=== PATIENT | male | born 1975 | race African-American/Black ===

== ENCOUNTER 2019-11-14 09:20 | Emergency (ER) | payer OTHER, SELFPAY ==
--- NOTE | ~2019-11-14 | US_ITS ---
EXAMINATION: US scrotum doppler DATE: 11/14/2019 10:41 INDICATION: Right testicular pain TECHNIQUE: Testicular sonogram utilizing grayscale and Doppler COMPARISON: None. FINDINGS: The right testis measures 3.1 x 1.9 x 3.0 cm. The left testis measures 2.8 x 1.7 x 4.1 cm. There is normal vascular flow to both testes. The right epididymis is normal with normal vascular malcolm w. The left epididymis is normal with normal vascular flow. There is no varicocele or hydrocele. IMPRESSION: 1. No sonographic correlate for the patient's symptoms. Reviewed, dictated and finalized at location A.
[2019-11-14 09:18] VITALS: BP 110/60; PULSE 99; RESP 18; TEMP 37.9; O2SAT 100
--- NOTE | 2019-11-14 09:26 | ED.MALEGU ---
HPI - Male Genitourinary General Chief complaint: Urogenital-Male Stated complaint: Groin Pain Time Seen by Provider: 11/14/19 09:23 Source: patient and EMS Mode of arrival: EMS Limitations: no limitations History of Present Illness HPI Narrative: Patient presents via EMS for right testicular pain. 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 He has never had this before. He gauges the pain at 13 out of 10. Says his right testicle swollen. He says he has no risk of sexually transmitted disease. He denies penile discharge, or dysuria. He has a surgical history of circumcision and hip surgery. He has medical history of sickle cell disease. He does not recognize the medications hydroxyurea or folic acid. He does not smoke cigarettes, drink alcohol, or do marijuana. Complaint: testicle pain and testicle swelling Onset (ago): day(s) Duration: constant Location: right testicle Radiation: right inguinal region Severity: severe Severity scale (1-10): >10 Relieving factors: none Exacerbating factors: palpation Associated symptoms: Reports swelling Related Data Allergies Allergy/AdvReac Type Severity Reaction Status Date / Time No Known Allergies Allergy Verified 11/14/19 09:25 Review of Systems Review of Systems: Narrative: CONSTITUTIONAL: Denies fever, chills, or sweats. ENT: Denies rhinorrhea, congestion, sore throat, or otalgia. CARDIOVASCULAR: Denies chest pain, palpitations, or edema. RESPIRATORY: Denies cough or dyspnea. GASTROINTESTINAL: Denies abdominal pain, nausea, vomiting, or diarrhea. GENITOURINARY: Denies dysuria or hematuria. MUSCULOSKELETAL: Denies back pain, joint pain, or myalgia. NEUROLOGIC: Denies headache, numbness, or weakness. . All systems reviewed & are unremarkable except as noted in HPI and below PMFSH Past Medical History Medical History Sickle cell anemia Surgical History Surgical History (Updated 11/14/19 @ 09:29 by Tiffany Ghosh MD) History of circumcision History of hip surgery Social History Social History (Updated 11/14/19 @ 09:29 by Tiffany Ghosh MD) Smoking status: Never smoker Alcohol intake: never Substance use: never Exam Narrative: Exam Narrative: GENERAL: Well-appearing, well-nourished, and in no acute distress. Very thin and smiling. HEAD: Normocephalic, atraumatic. EYES: PERRLA and EOMI. ENT: Nares clear, no rhinorrhea or epistaxis. Mucous membranes moist. NECK: Supple. CHEST: Clear to auscultation. No respiratory distress. HEART: Regular rate and rhythm. No murmur heard. Normal peripheral pulses. ABDOMEN: Soft, nontender, nondistended, normal active bowel sounds. EXTREMITIES: Normal range of motion. No edema. SKIN: Warm, dry, no rash. NEURO: No focal deficits. Alert and oriented x3. PSYCH: Normal mood and affect. : Right testicle larger than left. Left testicle unusually small. Tenderness in the right testis. Both lying low in the scrotum. No penile discharge. Circumcised penis. Tenderness in the right inguinal area. No hernia. Course Reevaluation(s) Reevaluation #1: Went back into check on the patient and he said his pain is better. His truck is over at the [employer] truck stop. He will take a cab to get there. 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 I will give him the 600 ibuprofen at the [facility] on the corner. I told him we would treat him with antibiotics first. I recommended scrotal support. He can follow-up with his primary care physician at home. I explained his hemoglobin was 7.2 and that he did not need a transfusion for sickle cell. He agreed and said that he has not had a sickle cell crisis in 10 years. Date: 11/14/19 Time: 11:08 Vital Signs Vital signs: Vital Signs Temperature 100.3 F H 11/14/19 09:18 Pulse Rate 99 11/14/19 09:18 Respiratory Rate 18 11/14/19 09:18 Blood Pressure 110/60
[2019-11-14] MEDS: oxyCODONE/ACETAMINOPHEN 5-325 MG TABLET 1 TABLET PO (09:27)
[2019-11-14] MEDS: SODIUM CHLORIDE 0.9% IV 1,000 ML 999 ML IV CONT (09:36)
[2019-11-14 09:52] LABS: Basophils Absolute Auto 0.1 K/mm3 (0.0-0.1); Basophils Percent Auto 0.4 % (0.2-1.2); Eosinophils Absolute Auto 0.1 K/mm3 (0-0.3); Eosinophils Percent Auto 0.5 % (0-4.4); Hemoglobin 7.2 g/dL (14.0-18.0); Immature Granulocyte Absolute 0.08 K/mm3 (0.00-0.031); Immature Granulocyte Percent A 0.5 % (0-0.5); Immature Reticulocyte Fraction 31.7 % (3.0-15.9); Lymphocytes Absolute Auto 1.11 K/mm3 (0.9-3.2); Lymphocytes Percent Auto 6.9 % (18.3-44.2); Mean Corpuscular HGB Conc 34.6 g/dl (32-36); Mean Corpuscular Hemoglobin 24.8 pg (26-34); Mean Corpuscular Volume 71.7 fl (80-100); Mean Platelet Volume 10.6 fl (7.4-10.4); Monocytes Absolute Auto 1.5 K/mm3 (0.1-0.6); Monocytes Percent Auto 9.2 % (2.6-8.5); Neutrophils Absolute Auto 13.3 K/mm3 (1.3-6.7); Neutrophils Percent Auto 82.5 % (45.5-73.1); Nucleated Red Blood Cells Absolute Auto 0.1 K/mm3 (0.0-0.012); Nucleated Red Blood Cells Perc 0.4 % (0.0-0.2); Platelet Count Result 366 k/mm3 (150-375); Reticulocyte Percent 5.88 % (0.7-4.3); Reticulocytes Absolute 0.17 B/L (32.2-175.7); White Blood Count 16.1 K/mm3 (4.5-10.0)
[2019-11-14 10:06] LABS: Alanine Aminotransferase 38 U/L (4-50); Albumin Level 4.3 g/dL (3.5-5.1); Alkaline Phosphatase 105 U/L (38-126); Anion Gap 8 mmol/L (8-16); Aspartate Amino Transferase 55 U/L (17-59); Bilirubin,Total 3.4 mg/dL (0.2-1.3); Blood Urea Nitrogen 6 mg/dL (9-20); Calcium 8.5 mg/dL (8.4-10.2); Carbon Dioxide 22 mmol/L (22-30); Chloride 109 mmol/L (98-107); Estimated CRCL calculation 71 ml/min; Estimated Glomerular Filt Rate > 60; Glucose 101 mg/dL (75-110); Sodium 139 mmol/L (137-145)
[2019-11-14 10:07] LABS: Hematocrit 20.8 % (42.0-52.0)
[2019-11-14 10:13] LABS: Platelet Estimate Adequate (Adequate)
[2019-11-14 10:14] LABS: Anisocytosis 2+ (NORMAL); Hypochromasia 2+ (NORMAL); Ovalocytes 1+ (NORMAL); Schistocytes 1+ (NORMAL); Sickle Cells 1+ (NORMAL); Target Cells 1+ (NORMAL)
[2019-11-14 11:00] LABS: Add Urine Microscopic? YES; Appearance Urine Clear (Clear); Bacteria Urine Trace /hpf; Bilirubin Urine Negative (Negative); Blood Urine Negative (Negative); Color Urine Yellow (Yellow); Glucose Urine UA Negative (Negative); Ketones Urine Negative (Negative); Leukocyte Esterase Ur 1+ LEU/UL (Negative); Mucus Urine Heavy /lpf; Nitrate Urine Negative (Negative); Protein Urine Negative (Negative); RBC Urine 0-2 /hpf (0-2); Squamous Epithelial Cell Urine Rare /hpf (Few)
[2019-11-14] MEDS: LIDOCAINE HCL 1% LOCAL INJ 20 ML VIAL (11:18)
[2019-11-14] MEDS: AZITHROMYCIN 250 MG TABLET 1000 MG PO (11:18)
[2019-11-14] MEDS: cefTRIAXone 250 MG VIAL IM (11:18)
[2019-11-14 11:27] VITALS: BP 115/75; PULSE 96; RESP 18; O2SAT 99
== END 2019-11-14 11:28 | disposition home or self-care (01) ==
PROVIDERS: Emergency Provider Emergency Medicine
DX: N50.811 Right testicular pain (principal); D57.1 Sickle-cell disease without crisis
CPT/HCPCS: 36415; 76870; 80053; 81001; 85025; 85046; 87077; 87086; 87088; 93976; 96360; 96372; 99284; A9270; J0696; J7030